=== PATIENT | female | born 1940 | race African-American/Black ===

== ENCOUNTER 2018-07-11 14:17 | Outpatient (CLI) | payer MEDICARE, OTHER ==
[~2018-07-11] VITALS: Ht 160 cm; Wt 50.3 kg
[~2018-07-11 14:17] MED LIST: AMLODIPINE BES2.5 MG ORAL; HYDRALAZINE HCL50 MG ORAL; HYDROCHLOROTHIA25 MG ORAL; LIPITOR40 MG ORAL; LISINOPRIL20 MG ORAL; PLAVIX75 MG ORAL; TOPROL XL100 MG ORAL
[2018-07-11 14:30] VITALS: BP 172/78
[2018-07-11] MEDS ORDERED: LETROZOLE2.5 MG ORAL (16:00)
--- NOTE | 2018-07-11 23:30 | Consultation ---
DATE OF CONSULTATION: 07/11/2018 GASTROENTEROLOGY CONSULTATION CONSULTING PHYSICIAN: Kaveh Ruiz M.D. CHIEF COMPLAINT: Anemia. HISTORY OF PRESENT ILLNESS: The patient is a given history. She is a 77-year-old with numerous medical problems, which I will dictate in a second including hypertension, peripheral vascular disease, right breast cancer, had a procedure done at [facility] with opening of the vasculature to the lower extremity because she has lower extremity ischemia. She also had AAA based on imaging studies. The patient was referred to us mainly for evaluation of the anemia. The patient denies any nausea, vomiting, dysphagia, or odynophagia. Complained of some weight loss. No melena or hematochezia. No prior history of endoscopy or colonoscopy. PAST MEDICAL HISTORY: 1. History of cataract. 2. History of hypertension. 3. Hypercholesterolemia. 4. History of breast cancer. 5. Anemia. 6. AAA. 7. Peripheral vascular disease. PAST SURGICAL HISTORY: 1. Cholecystectomy. 2. Lumpectomy. MEDICATIONS: Please see medication reconciliation list. FAMILY HISTORY: Noncontributory. SOCIAL HISTORY: The patient denies any tobacco, alcohol, or drug abuse. ALLERGIES: Allergic to aspirin, codeine, and penicillin. PHYSICAL EXAMINATION: VITAL SIGNS: Temperature 97.7, blood pressure 132/78, pulse 69, respirations 20. HEENT: Normocephalic and atraumatic. Sclerae anicteric. NECK: Supple. No evidence of lymphadenopathy. CARDIOVASCULAR: Regular rate and rhythm. Plus S1 and S2. LUNGS: Decreased breath sounds bilaterally based on the supine exam. ABDOMEN: Soft and nontender. No rebound. No guarding. No peritoneal sign. EXTREMITIES: No cyanosis. No clubbing. No edema. ASSESSMENT AND PLAN: This is a very pleasant 77-year-old female with anemia. No prior history of endoscopy and colonoscopy. Discussed with the patient regarding the need for this EGD and colonoscopy. Meanwhile, she never had one and she is anemic and she has some weight loss too. She agreed to it, so we will plan to do it on 07/22/2018. The patient was given instructions and preparation for colonoscopy. She will hopefully show up on 07/22/2018 for the procedure. I want to thank, Dr. Luis E Phelps, for this kind referral. Kaveh Eunice Ruiz DR: ANTHONY JOB#: [id number] CC: Luis E Phelps M.D.; Fax#: [phone]
[2018-07-12] MEDS ORDERED: CALCIUM + VITA1 EAC1 PO (10:32)
[2018-07-12] MEDS ORDERED: BONIVA150 MG ORAL (10:32)
[2018-07-12] MEDS ORDERED: METOPROLOL TART50 M1 ORAL (10:32)
[2018-07-12] MEDS ORDERED: MULTIVITAMINS1 EAC2 ORAL (10:32)
[2018-07-12] MEDS ORDERED: AMLODIPINE BESY10 MG ORAL (10:32)
[2018-07-12] MEDS ORDERED: LIPITOR20 MG ORAL (10:32)
[2018-07-12] MEDS ORDERED: REPATHA SY140 MG/1 M SQ (10:43)
== END 2018-07-11 15:50 | disposition home or self-care (01) ==
LOC: PAN 14:17
DX: D64.9 Anemia, unspecified (principal); Z88.6 Allergy status to analgesic agent; Z88.0 Allergy status to penicillin; I10 Essential (primary) hypertension; Z85.3 Personal history of malignant neoplasm of breast; E78.00 Pure hypercholesterolemia, unspecified; Z90.49 Acquired absence of other specified parts of digestive tract
CPT/HCPCS: 99203